=== PATIENT | female | born 2000 | race Caucasian/White ===

== ENCOUNTER 2022-11-27 15:07 | Emergency (ER) | payer OTHER ==
[~2022-11-27] VITALS: Ht 157.5 cm; Wt 131.5 kg
[2022-11-27 15:16] VITALS: BP 133/100
--- NOTE | 2022-11-27 15:28 | NUR ---
PT C/O LOWER BACK PAIN X 2WKS. SAFETY MAINTAINED.
[2022-11-27 15:31] VITALS: BP 116/63
--- NOTE | 2022-11-27 15:32 | NUR ---
Patient discharged with v/s stable. Written and verbal after care instructions given and explained. Patient alert, oriented and verbalized understanding of instructions. Ambulatory with steady gait. All questions addressed prior to discharge. ID band removed. Patient advised to follow up with PMD. Rx of CEPACOL,CLOTRIMAZOLE given. Patient educated on indication of medication including possible reaction and side effects. Opportunity to ask questions provided and answered.
[2022-11-27 15:47] LABS: APPEARANCE,URINE CLEAR (CLEAR); BILIRUBIN,URINE NEGATIVE (NEGATIVE); BLOOD, URINE 3+ (NEGATIVE); COLOR,URINE YELLOW (YELLOW); LEUKOCYTE ESTERASE ,URINE NEGATIVE (NEGATIVE); NITRITE, URINE NEGATIVE (NEGATIVE); PH,URINE 6.5 (5.0-9.0); UGLUCOSE NEGATIVE (NEGATIVE)
[2022-11-27] MEDS: KETOROLAC 30 MG/ML VIAL IM SCH ×3 (16:41→16:48)
[2022-11-27 16:47] LABS: RBC,URINE TOO NUMEROUS TO COUN /HPF (0-5); WBC,URINE NONE SEEN /HPF (0-5)
[2022-11-27] MEDS ORDERED: CYCL-711 PO (17:02)
[2022-11-27] MEDS ORDERED: IBUP-2213 PO (17:02)
[2022-11-27] MEDS ORDERED: LID5T TP (17:02)
--- NOTE | 2022-11-27 17:08 | NUR ---
The patient's care was reviewed and supervised by [place] 05 SEBASTIAN, RN.
== END 2022-11-27 15:32 | disposition home or self-care (01) ==
LOC: MED 15:07
DX: S39.012A Strain of muscle, fascia and tendon of lower back, initial encounter (principal); R03.0 Elevated blood-pressure reading, without diagnosis of hypertension; Z79.899 Other long term (current) drug therapy; Z79.1 Long term (current) use of non-steroidal anti-inflammatories (NSAID); X58.XXXA Exposure to other specified factors, initial encounter; Y92.89 Other specified places as the place of occurrence of the external cause; Y93.89 Activity, other specified; Y99.8 Other external cause status
CPT/HCPCS: 81001; 81025; 96372; 99283; J1885

== ENCOUNTER 2022-12-04 17:23 | Emergency (ER) | payer OTHER ==
[~2022-12-04] VITALS: Ht 162.6 cm; Wt 113.4 kg
[~2022-12-04 17:23] MED LIST: CYCL-711 PO; IBUP-2213 PO; LID5T TP
[2022-12-04 17:44] VITALS: BP 149/80
[2022-12-04 18:42] LABS: APPEARANCE,URINE CLEAR (CLEAR); BILIRUBIN,URINE NEGATIVE (NEGATIVE); BLOOD, URINE 3+ (NEGATIVE); COLOR,URINE YELLOW (YELLOW); LEUKOCYTE ESTERASE ,URINE 1+ (NEGATIVE); NITRITE, URINE NEGATIVE (NEGATIVE); PH,URINE 6.5 (5.0-9.0); UGLUCOSE NEGATIVE (NEGATIVE)
[2022-12-04 18:56] LABS: RBC,URINE 20-50 /HPF (0-5)
[2022-12-04] MEDS ORDERED: KETOROLAC 30 MG/ML VIAL IM ONE (19:10)
--- NOTE | 2022-12-04 19:15 | NUR ---
medicated as per PAs order, tolerated well.
[2022-12-04 19:45] VITALS: BP 128/78
[2022-12-04] MEDS ORDERED: NAPR-1704 PO (19:45)
[2022-12-04] MEDS ORDERED: CAPS1ADH5 TP (19:45)
--- NOTE | 2022-12-04 19:45 | NUR ---
Patient discharged with v/s stable. Written and verbal after care instructions given and explained. Patient alert, oriented and verbalized understanding of instructions. Ambulatory with steady gait. All questions addressed prior to discharge. ID band removed. Patient advised to follow up with PMD. Rx of allie salas, given. Patient educated on indication of medication including possible reaction and side effects. Opportunity to ask questions provided and answered.
== END 2022-12-04 19:45 | disposition home or self-care (01) ==
LOC: MED 17:23
DX: S39.012A Strain of muscle, fascia and tendon of lower back, initial encounter (principal); Z79.899 Other long term (current) drug therapy; Z79.1 Long term (current) use of non-steroidal anti-inflammatories (NSAID); X50.0XXA Overexertion from strenuous movement or load, initial encounter; Y92.89 Other specified places as the place of occurrence of the external cause; Y93.89 Activity, other specified; Y99.8 Other external cause status
CPT/HCPCS: 72100; 81001; 81025; 87086; 96372; 99284; J1885